=== PATIENT | female | born 1930 | race American Indian/Alaskan Native ===

== ENCOUNTER 2017-07-18 10:42 | Inpatient (IN) | payer MEDICARE, OTHER ==
[2017-07-18 10:52] VITALS: BMI 28.4
--- NOTE | 2017-07-18 11:24 | C.PDOC ---
History Of Present Illness LIMITED DUE TO CLINICAL CONDITION 87 Y/O FEMALE BROUGHT TO ED BY FAMILY FOR WORSENING WEAKNESS, FALLS, AND INCREASED CONFUSION X 2-3 DAYS. PER FAMILY, PATIENT LIVES ALONE AT HOME, NORMALLY USES CANE AND WALKER. FAMILY STATES THAT SHE APPEARS TO MORE CONFUSED LATELY - INITIALLY ATTRIBUTED TO REACTION TO RECENT IN THE FAMILY, HOWEVER FAMILY MEMBERS REPORT THEY FOUND PT LYING ON THE FLOOR FOR UNKNOWN DURATION YESTERDAY MORNING. ALSO WITH RECURRENT FALL YESTERDAY AFTERNOON; AGAIN PT WAS FOUND ON THE GROUND 2-3 HOURS AFTER FALL. PT WITH HISTORY OF INTERMITTENT LEG SWELLING; NOTED TO HAVE INCREASED SWELLING TODAY, WITH BLISTER TO LEFT LOWER LEG 4 DAYS AGO. NOW RESOLVED. DENIES FEVER. EXAM AAO X 2. LUNGS CLEAR, NO RALES. SKIN: DEHISCED BLISTER LEFT LOWER LEG, NO CELLULITIS OR DISCHARGE. EXTREMITY: 3+ EDEMA BILATERAL LOWER EXTREMITIES NEURO NO FOCAL DEFICITS mdm +SEVERE PERIPH EDEMA. DEFER SEPSIS IVF BOLUS DUE TO CONCERN FOR CHF HX. PENDING BNP Time Seen by Provider: 07/18/17 11:05 Chief Complaint (Nursing): Trauma History Per: Family History/Exam Limitations: Clinical Condition Onset/Duration Of Symptoms: Days Current Symptoms Are (Timing): Still Present Usual Baseline: Alert Confused Use Of Anticoag/Antiplatelets: No Recent travel outside of the [place]: No Associated Symptoms: Confused, Falling. denies: Fever, Chills, Vomiting, Diarrhea, Dyspnea Past Medical History Reviewed: Historical Data, Nursing Documentation, Vital Signs Vital Signs: Last Vital Signs Temp 99.9 F H 07/18/17 11:45 Pulse 121 H 07/18/17 13:14 Resp 17 07/18/17 13:14 BP 157/81 H 07/18/17 13:14 Pulse Ox 100 07/18/17 13:14 - Medical History PMH: HTN, Hypercholesterolemia - [facility] PERCUTAN NEEDLE BIOPSY OF BREAST (12/17/03) Family History: States: Unknown Family Hx - Social History Hx Alcohol Use: No Hx Substance Use: No - Immunization History Hx Tetanus Toxoid Vaccination: No Hx Influenza Vaccination: No Hx Pneumococcal Vaccination: No Review Of Systems Except As Marked, All Systems Reviewed And Found Negative. Constitutional: Positive for: Weakness. Negative for: Fever, Chills Cardiovascular: Negative for: Chest Pain, Palpitations Respiratory: Negative for: Cough, Shortness of Breath, Wheezing Gastrointestinal: Negative for: Vomiting, Diarrhea Skin: Negative for: Rash Neurological: Positive for: Confusion. Negative for: Headache, Dizziness Physical Exam - Physical Exam Appears: Well, Non-toxic, No Acute Distress, Other (AAO X 2) Skin: Warm, Dry, Other (DEHISCED BLISTER LEFT LOWER LEG, NO CELLULITIS OR DISCHARGE. ) Head: Atraumatic, Normacephalic Eye(s): bilateral: Normal Inspection, PERRL, EOMI Nose: Normal Oral Mucosa: Moist Chest: Symmetrical Cardiovascular: Rhythm Regular Respiratory: Normal Breath Sounds, No Rales, No Rhonchi, No Wheezing Gastrointestinal/Abdominal: Soft, No Tenderness, No Guarding Back: Normal Inspection Extremity: Normal ROM, Capillary Refill (< 2 SEC.), Swelling (3+ EDEMA BILATERAL LOWER EXTREMITIES) Neurological/Psych: Other (NO FOCAL DEFICITS) ED Course And Treatment - Laboratory Results Result Diagrams: 07/18/17 11:50 07/18/17 11:50 O2 Sat by Pulse Oximetry: 99 (RA) Pulse Ox Interpretation: Normal - Radiology CXR: Interpreted by Or CXR Interpretation: Yes: No Acute Disease - CT Scan/US CT Head Other Rad Studies (CT/US): Read By Radiologist, Radiology Report Reviewed CT/US Interpretation: IMPRESSION: No evidence of acute intracranial hemorrhage or large acute infarct. Moderate diffuse/confluent chronic white matter ischemic changes seen extending peripherally into deep and subcortical white matter both cerebral hemispheres. There is also extension of these ischemic changes into the white matter tracts both basal nuclei right greater than left. . There also appears be some more discrete encephalomalacia left frontal subcortical white matter subjacent to left frontoparietal craniotomy defect. Moderate volume loss. Moderate central volume loss. As mentioned above comment the left frontoparietal craniotomy defect as above. . Question fibrous dysplasia left skullbase as described with postoperative changes including partial resection of the left orbital roof. Hyperostosis frontalis interna Progress - Re-Evaluation Re-evaluation Note: 07/18/17 11:38 CT HEAD, EKG, BLOODWORK ORDERED. 07/18/17 13:07 EXAM UNCH VSS NAD. PENDING CALLBACK PMD 07/18/17 13:10 D/W DR Rajiv MEJIA WILL ADMIT - Data Reviewed Data Reviewed: Lab, Diagnostic imaging, EKG, Old records - Critical Care Citical Care: Excluding Proc Time Critical Care Time: 90 minutes - Continuity of Care Discussed patient case with:: Patient, Family-HIPPA compliant Medical Decision Making Medical Decision Making: +SEVERE PERIPH EDEMA. DEFER SEPSIS IVF BOLUS DUE TO CONCERN FOR CHF HX. PENDING BNP Disposition Counseled Patient/Family Regarding: Studies Performed, Diagnosis - Disposition Disposition: HOSPITALIZED Disposition Time: 13:10 Condition: STABLE Forms: [facility] (Swedish) - POA Present On Arrival: Falls Or Trauma, Poor Glycemic Control - Clinical Impression Clinical Impression: Recurrent falls, CHF exacerbation, Confusion - Scribe Statement The provider has reviewed the documentation as recorded by the Scribe SM All medical record entries made by the Scribe were at my direction and personally dictated by me. I have reviewed the chart and agree that the record accurately reflects my personal performance of the history, physical exam, medical decision making, and the department course for this patient. I have also personally directed, reviewed, and agree with the discharge instructions and disposition. Decision To Admit - Pt Status Changed To: Hospital Disposition Of: Inpatient - Admit Certification Admit to Inpatient:: After my assessment, the patient will require hospitalization for at least two midnights. This is because of the severity of symptoms shown, intensity of services needed, and/or the medical risk in this patient being treated as an outpatient. - InPatient: Physician Admission Certification:: SEE NOTE - . Bed Request Type: Telemetry Admitting Physician: Dudley Mejia Patient Diagnosis: Recurrent falls, CHF exacerbation, Confusion
[2017-07-18 11:44] LABS: VENOUS BLOOD GAS PCO2 44 mmHg (40-60)
--- NOTE | 2017-07-18 11:48 | RAD ---
HISTORY: Sepsis Patient COMPARISON: None available. TECHNIQUE: Chest, one view. FINDINGS: LUNGS: No focal consolidation. Please note that chest x-ray has limited sensitivity for the detection of pulmonary masses. PLEURA: No significant pleural effusion identified. No definite pneumothorax . CARDIOVASCULAR: Cardiomegaly. Ectatic aorta. OSSEOUS STRUCTURES: Degenerative changes of the spine and shoulders. VISUALIZED UPPER ABDOMEN: Unremarkable. OTHER FINDINGS: Left axillary clips. IMPRESSION: No focal consolidation, significant pleural effusion, or definite pneumothorax identified.
[2017-07-18 11:54] LABS: BASO % 0.8 % (0.0-2.0); EOS # 0.1 K/uL (0.0-0.7); EOS % 1.4 % (0.0-4.0); HEMATOCRIT 28.5 % (34.0-47.0); LYMPH % 19.9 % (20.0-40.0); MEAN CELL VOLUME 92.3 fL (81.0-99.0); MEAN CORPUSCULAR HEMOGLOBIN 30.2 pg (27.0-31.0); MEAN CORPUSCULAR HGB CONC 32.8 g/dL (33.0-37.0); MEAN PLATELET VOLUME 8.3 fL (7.2-11.7); MONO # 0.4 K/uL (0.0-0.8); MONO % 8.1 % (0.0-10.0); RED CELL DISTRIBUTION WIDTH 16.1 % (11.5-14.5); WHITE BLOOD COUNT 5.1 K/uL (4.8-10.8)
[2017-07-18 12:05] LABS: BILIRUBIN,TOTAL 0.9 mg/dL (0.2-1.3); CALCIUM 8.9 mg/dl (8.6-10.4); MAGNESIUM 2.1 mg/dL (1.6-2.3); PHOSPHOROUS 3.4 mg/dL (2.5-4.5); POTASSIUM 3.5 mmol/L (3.6-5.2); TOTAL PROTEIN 6.8 g/dL (6.3-8.3)
[2017-07-18 12:11] LABS: INR 1.1
[2017-07-18 12:17] LABS: TROPONIN I 0.093 ng/mL (0.00-0.120)
[2017-07-18 12:17] LABS: RBC URINE < 1 /hpf (0-3); URINE BACTERIA RARE (<OCC); URINE BILIRUBIN NEGATIVE (NEGATIVE); URINE BLOOD NEGATIVE (NEGATIVE); URINE COLOR Yellow (YELLOW); URINE GLUCOSE (UA) NORMAL (Normal); URINE KETONE NEGATIVE (NEGATIVE); URINE LEUKOCYTE ESTERASE NEG Leu/uL (Negative); URINE PROTEIN 1+ mg/dL (NEGATIVE); URINE UROBILINOGEN NORMAL mg/dL (0.2-1.0); WBC URINE 1 /hpf (0-5)
--- NOTE | 2017-07-18 12:48 | CT ---
PROCEDURE: CT HEAD WITHOUT CONTRAST. HISTORY: ams COMPARISON: No prior study available for comparison TECHNIQUE: Axial computed tomography images were obtained through the head/brain without intravenous contrast. Radiation dose: Total exam DLP = 954.76 mGy-cm. This CT exam was performed using one or more of the following dose reduction techniques: Automated exposure control, adjustment of the mA and/or kV according to patient size, and/or use of iterative reconstruction technique. FINDINGS: HEMORRHAGE: No acute parenchymal, subarachnoid or extra-axial hemorrhage. BRAIN: Moderate diffuse/confluent chronic white matter ischemic changes seen extending peripherally into deep and subcortical white matter both cerebral hemispheres. There is also extension of these ischemic changes into the white matter tracts both basal nuclei right greater than left. . There also appears be some more discrete encephalomalacia left frontal subcortical white matter subjacent to left frontal parietal craniotomy defect. Moderate central volume loss VENTRICLES: No evidence of obstructive hydrocephalus. . Cavum cavum vergae and/or cavum velum interpositum. CALVARIUM: No evidence of acute calvarial fracture not withstanding the aforementioned left frontal craniotomy defect. There is also hyperostosis frontalis interna. Mottled somewhat sclerotic appearance of the left sphenoid - temporal bones along the anterior floor left middle cranial fossa an along the posterolateral wall of the left orbit. There also appears to have been partial resection left orbital roof. Findings could represent fibrous dysplasia however clinical correlation with history/surgical history recommended. PARANASAL SINUSES: Unremarkable as visualized. No significant inflammatory changes. MASTOID AIR CELLS: Unremarkable as visualized. No inflammatory changes. OTHER FINDINGS: Changes of left cataract surgery. IMPRESSION: No evidence of acute intracranial hemorrhage or large acute infarct. Moderate diffuse/confluent chronic white matter ischemic changes seen extending peripherally into deep and subcortical white matter both cerebral hemispheres. There is also extension of these ischemic changes into the white matter tracts both basal nuclei right greater than left. . There also appears be some more discrete encephalomalacia left frontal subcortical white matter subjacent to left frontoparietal craniotomy defect. Moderate volume loss. Moderate central volume loss. As mentioned above comment the left frontoparietal craniotomy defect as above. . Question fibrous dysplasia left skullbase as described with postoperative changes including partial resection of the left orbital roof. Hyperostosis frontalis interna
[2017-07-18] MEDS ORDERED: Pneumococcal 23-Valent Vaccine IM ONE (16:03)
--- NOTE | 2017-07-19 01:31 | HP ---
HISTORY OF PRESENT ILLNESS: This is an 87-year-old female who was brought in with history of generalized weakness, frequent fall, found unresponsive on the floor, and subsequently brought to the emergency room. She has been having confusion at times. No sudden in the family. She has a longstanding history of hypertension and probable mitral regurgitation to my recollection. She is at home. She is maintained on Lasix 20 mg one a day, amlodipine 10 mg one a day, Coreg 12.5 mg twice a day, Lipitor 40 mg, and valsartan 160 mg. PERSONAL HISTORY: Does not smoke and does not drink. ALLERGIES: DENIED. PAST MEDICAL HISTORY: Essentially unremarkable except history of hypertension for the last many years and had some surgery done in the chest. The details of this is unclear at this time. REVIEW OF SYSTEMS: CONSTITUTIONAL: Generalized weakness. No fever, no chills, no cough, no hemoptysis, occasional wheezing, and she has history of bronchitis and asthma, being treated with Singulair in the past. No chest discomfort. Dyspnea on walking a little distance like going from bed to bathroom and she walks around with the walker. GASTROINTESTINAL: Decreased appetite. GENITOURINARY: No dysuria. No hematuria. Frequency is noted. MUSCULOSKELETAL: Multiple joint pains including both the hands, hip joints, and knee joints. PERIPHERAL VASCULAR SYSTEM: Negative for claudication, although she does not ambulate much around. NEUROLOGICAL: Negative for numbness or tingling. Frequent dizzy spell and some memory loss. No seizure. PSYCHIATRIC: No history of depression. PAST MEDICAL HISTORY: As mentioned above, nothing major. She had a percutaneous biopsy of the left breast in the past. PHYSICAL EXAMINATION: GENERAL: Shows elderly female who is conscious, alert, well-oriented, and in no acute distress. She is 5 feet 5 inches and weighs 171 pounds. VITAL SIGNS: Her blood pressure is 157/81, heart rate of 120, respiratory rate of 20, afebrile, and pulse oxygenation is 100% on 2 L. HEENT: Head is normocephalic. Eyes; no pallor and no icterus. Mouth; complete absence of teeth. NECK: Diffuse enlargement of the thyroid gland. RESPIRATORY: Decreased air entry at the bases. HEART: PMI is not localized. S1 and S2 is distant. No definite gallops. There is systolic ejection murmur grade 2-3/6 in aortic area. ABDOMEN: Soft and nontender. EXTREMITIES: Shows 2+ pitting edema from knee down. Arthritic changes in the both the knees and hands. NEUROLOGICAL: The patient is awake, alert, and oriented x3. LABORATORY DATA: CBC shows hemoglobin of 9.3. BUN is 35 and creatinine is 1.5. ProBNP is elevated to 4200. Chest x-ray showed no congestion. ASSESSMENT: This 87-year-old female with history of what appears to be mild congestive heart failure. Physical exam shows [id number] aortic stenosis. PLAN: At this point to careful diuresis. Continue to control of her blood pressure. We will review the echocardiogram done in the office, if not, we will repeat one here. DVT prophylaxis. Care of plan was explained to the patient's daughter. Dudley Mejia MD
[2017-07-19] MEDS ORDERED: Potassium Chloride 10 mEq ER Tab PO SCH (08:00)
[2017-07-19 08:10] LABS: POTASSIUM 3.5 mmol/L (3.6-5.2)
[2017-07-19 08:48] LABS: THYROID STIMULATING HORMONE 3.88 mIU/L (0.46-4.68)
[2017-07-19] MEDS: Potassium Chloride 20 mEq ER Tab PO SCH (11:55)
--- NOTE | 2017-07-19 12:38 | CP.PCM.PN ---
Subjective - Date & Time of Evaluation Date of Evaluation: 07/19/17 Time of Evaluation: 12:36 - Subjective Subjective: better.less sob Objective - Vital Signs/Intake and Output Vital Signs (last 24 hours): Temp Pulse Resp BP Pulse Ox 98 F 74 20 167/68 H 98 07/19/17 11:54 07/19/17 11:54 07/19/17 11:54 07/19/17 11:55 07/19/17 11:54 Intake and Output: 07/19/17 07/19/17 06:59 18:59 Intake Total 240 Output Total 1250 Balance -1010 - Medications Medications: Current Medications Amlodipine Besylate (Norvasc) 10 mg PO DAILY [facility] Last Admin: 07/19/17 11:55 Dose: 10 mg Bacitracin (Bacitracin) 0 gm TOP DAILY [facility] Stop: 07/26/17 10:01 Carvedilol (Coreg) 12.5 mg PO BID [facility] Last Admin: 07/19/17 11:55 Dose: 12.5 mg Furosemide (Lasix) 40 mg IVP DAILY [facility] Stop: 07/22/17 23:59 Last Admin: 07/19/17 11:55 Dose: 40 mg Heparin Sodium (Porcine) (Heparin) 5,000 units SC Q12H [facility] Last Admin: 07/19/17 11:55 Dose: 5,000 units Losartan Potassium (Cozaar) 100 mg PO DAILY [facility] Last Admin: 07/19/17 11:55 Dose: 100 mg Potassium Chloride (K-Dur 20 Meq Er Tab) 40 meq PO DAILY [facility] Last Admin: 07/19/17 11:55 Dose: 40 meq Rosuvastatin Calcium (Crestor) 5 mg PO HS [facility] - Labs Labs: 07/19/17 07:32 PT 12.8 SECONDS (9.7-12.2) H 07/18/17 11:50 INR 1.1 07/18/17 11:50 APTT 30 SECONDS (21-34) 07/18/17 11:50 - Constitutional Appears: No Acute Distress - Eye Exam Eye Exam: Normal appearance - Neck Exam Neck Exam: Normal Inspection - Respiratory Exam Respiratory Exam: Decreased Breath Sounds - Cardiovascular Exam Cardiovascular Exam: REGULAR RHYTHM, Murmur - GI/Abdominal Exam GI & Abdominal Exam: Soft - Extremities Exam Extremities Exam: Pedal Edema - Neurological Exam Neurological Exam: Alert, Oriented x3 Assessment and Plan - Assessment and Plan (Free Text) Assessment: chf,diastolic.better. echo reviewed by me. normal lv systolic func iton.dilated la,lra. mild mr,tr,pulmonaryn htn needs rehab.
[2017-07-19] MEDS: Bacitracin Ointment 30 GM TUBE TOP SCH (14:10)
[2017-07-19] MEDS ORDERED: Rosuvastatin Calcium 2.5 mg Tab PO SCH (22:00)
[2017-07-20 08:29] LABS: CALCIUM 8.2 mg/dl (8.6-10.4); POTASSIUM 3.4 mmol/L (3.6-5.2)
[2017-07-20] MEDS: Potassium Chloride 20 mEq ER Tab PO SCH (10:13)
[2017-07-20] MEDS: Bacitracin Ointment 30 GM TUBE TOP SCH (12:47)
--- NOTE | 2017-07-20 13:00 | CP.PCM.PN ---
Subjective - Date & Time of Evaluation Date of Evaluation: 07/20/17 Time of Evaluation: 12:59 - Subjective Subjective: refuses too get oob.uti. Objective - Vital Signs/Intake and Output Vital Signs (last 24 hours): Temp Pulse Resp BP Pulse Ox 98.1 F 70 20 164/69 H 100 07/20/17 08:00 07/20/17 08:00 07/20/17 08:00 07/20/17 12:45 07/20/17 08:00 Intake and Output: 07/20/17 07/20/17 06:59 18:59 Output Total 1550 Balance -1550 - Medications Medications: Current Medications Amlodipine Besylate (Norvasc) 10 mg PO DAILY [facility] Last Admin: 07/20/17 10:13 Dose: 10 mg Bacitracin (Bacitracin) 0 gm TOP DAILY [facility] Stop: 07/26/17 10:01 Last Admin: 07/20/17 12:47 Dose: 1 appl Carvedilol (Coreg) 12.5 mg PO BID [facility] Last Admin: 07/20/17 10:13 Dose: 12.5 mg Ciprofloxacin (Cipro) 500 mg PO BID [facility] Furosemide (Lasix) 40 mg IVP DAILY [facility] Stop: 07/22/17 23:59 Last Admin: 07/20/17 12:45 Dose: 40 mg Heparin Sodium (Porcine) (Heparin) 5,000 units SC Q12H [facility] Last Admin: 07/20/17 10:13 Dose: 5,000 units Losartan Potassium (Cozaar) 100 mg PO DAILY [facility] Last Admin: 07/20/17 10:13 Dose: 100 mg Potassium Chloride (K-Dur 20 Meq Er Tab) 40 meq PO DAILY [facility] Last Admin: 07/20/17 10:13 Dose: 40 meq Potassium Chloride (K-Dur 20 Meq Er Tab) 40 meq PO DAILY [facility] Stop: 07/20/17 17:01 Rosuvastatin Calcium (Crestor) 5 mg PO HS [facility] Last Admin: 07/19/17 22:00 Dose: 5 mg - Labs Labs: 07/20/17 08:09 PT 12.8 SECONDS (9.7-12.2) H 07/18/17 11:50 INR 1.1 07/18/17 11:50 APTT 30 SECONDS (21-34) 07/18/17 11:50 - Constitutional Appears: No Acute Distress, Chronically Ill - Head Exam Head Exam: NORMOCEPHALIC - Eye Exam Eye Exam: Normal appearance - Respiratory Exam Respiratory Exam: Clear to Ausculation Bilateral - Cardiovascular Exam Cardiovascular Exam: REGULAR RHYTHM - GI/Abdominal Exam GI & Abdominal Exam: Soft - Extremities Exam Extremities Exam: absent: Pedal Edema - Neurological Exam Neurological Exam: Alert, Oriented x3 Assessment and Plan - Assessment and Plan (Free Text) Assessment: now on cipro. phy therapy. k replaced. needs rehab.
[2017-07-20] MEDS ORDERED: Potassium Chloride 20 mEq ER Tab PO ONE (17:00)
--- NOTE | 2017-07-20 18:28 | CARD ---
APPROVED REPORT EKG Measurement Heart [id number] <Conclusion> Sinus rhythm with marked sinus arrhythmia Possible Left atrial enlargement Low voltage QRS Borderline ECG
[2017-07-21 07:34] VITALS: RESP 20
[2017-07-21 08:06] LABS: BASO % 0.8 % (0.0-2.0); EOS # 0.1 K/uL (0.0-0.7); EOS % 2.8 % (0.0-4.0); HEMATOCRIT 30.3 % (34.0-47.0); LYMPH # 1.1 K/uL (1.0-4.3); LYMPH % 24.4 % (20.0-40.0); MEAN CELL VOLUME 92.1 fL (81.0-99.0); MEAN CORPUSCULAR HEMOGLOBIN 30.7 pg (27.0-31.0); MEAN CORPUSCULAR HGB CONC 33.3 g/dL (33.0-37.0); MONO # 0.5 K/uL (0.0-0.8); NRBC % 0.1 % (0.0-2.0); WHITE BLOOD COUNT 4.4 K/uL (4.8-10.8)
[2017-07-21 08:13] LABS: POTASSIUM 3.8 mmol/L (3.6-5.2)
[2017-07-21 08:15] LABS: BILIRUBIN,TOTAL 0.8 mg/dL (0.2-1.3); CALCIUM 8.4 mg/dl (8.6-10.4)
[2017-07-21] MEDS: Potassium Chloride 20 mEq ER Tab PO SCH (10:03)
[2017-07-21] MEDS: Bacitracin Ointment 30 GM TUBE TOP SCH (10:03)
[2017-07-21 16:22] VITALS: PULSE 71; TEMP 98.4; O2SAT 96
--- NOTE | 2017-07-21 16:33 | CP.PCM.PN ---
Subjective - Date & Time of Evaluation Date of Evaluation: 07/21/17 Time of Evaluation: 16:31 - Subjective Subjective: PT SEEN AND EXAMINED TODAY BY DR BROWN, PT DENIES ANY PAIN, SOB, PALPITATION, RESP EASY AND UNLABORED. NAD Objective - Vital Signs/Intake and Output Vital Signs (last 24 hours): Temp Pulse Resp BP Pulse Ox 98.4 F 71 20 142/55 L 96 07/21/17 16:00 07/21/17 16:00 07/21/17 16:00 07/21/17 16:00 07/21/17 16:00 Intake and Output: 07/21/17 07/21/17 06:59 18:59 Intake Total 480 Output Total 2600 500 Balance -2600 -20 - Medications Medications: Current Medications Amlodipine Besylate (Norvasc) 10 mg PO DAILY [facility] Last Admin: 07/21/17 10:02 Dose: 10 mg Bacitracin (Bacitracin) 0 gm TOP DAILY [facility] Stop: 07/26/17 10:01 Last Admin: 07/21/17 10:03 Dose: 1 appl Carvedilol (Coreg) 12.5 mg PO BID [facility] Last Admin: 07/21/17 10:03 Dose: 12.5 mg Ciprofloxacin (Cipro) 500 mg PO BID [facility] Last Admin: 07/21/17 10:03 Dose: 500 mg Furosemide (Lasix) 40 mg IVP DAILY [facility] Stop: 07/22/17 23:59 Last Admin: 07/21/17 10:03 Dose: 40 mg Heparin Sodium (Porcine) (Heparin) 5,000 units SC Q12H [facility] Last Admin: 07/21/17 10:24 Dose: 5,000 units Losartan Potassium (Cozaar) 100 mg PO DAILY [facility] Last Admin: 07/21/17 10:03 Dose: 100 mg Potassium Chloride (K-Dur 20 Meq Er Tab) 40 meq PO DAILY [facility] Last Admin: 07/21/17 10:03 Dose: 40 meq Rosuvastatin Calcium (Crestor) 5 mg PO HS [facility] Last Admin: 07/20/17 22:58 Dose: 5 mg - Labs Labs: 07/21/17 07:52 07/21/17 07:52 PT 12.8 SECONDS (9.7-12.2) H 07/18/17 11:50 INR 1.1 07/18/17 11:50 APTT 30 SECONDS (21-34) 07/18/17 11:50 Assessment and Plan - Assessment and Plan (Free Text) Plan: 87 Y/O FEMALE WITH PMHX HTN ADMITTED FOR FREQUENT FALLS, CHF, DIASTOLIC, UTI ECHO- NORMAL LVF, MILD PUL HTN PT CLEAR FOR D/C BY DR BROWN UA AND C/S RESULT REVIEWED-BACTRIM DS FOR UTI FOR 7 DAYS WOUND CARE, FALL PRECAUTIONS MED REC PER DR BROWN
--- NOTE | 2017-07-21 16:49 | PCM.HF ---
Heart Failure Core Measure - Heart Failure Ejection Fraction: 40 % or Greater MICHAEL Inhibitor Prescribed: No Contraindication/Reason for not providing: ON ARB Beta-Nathan Prescribed: Carvedilol Angiotensin II Receptor Nathan Prescribed: Yes AnticoagulationTherapy for Atrial Fibrillation/Atrialflutter: No Contraindication/Reason for not providing: NO AFIB Aldosterone Antagonist Prescribed: No Contraindication/Reason for not providing: EF >40 Hydralazine Nitrate Prescribed: No Contraindication/Reason for not providing: EF >40 Implantable Cardioverter Defibrillator Therapy: No Contraindication/Reason for not providing: EF >40 Cardiac Resynchronization Therapy Prescribed: No Contraindication/Reason for not providing: EF >40 - Follow up Will be discharged to: Assisted Facility Follow Up Date (must be within 7 days from discharge): 07/25/17 Follow Up Time: 09:00
--- NOTE | 2017-07-21 17:18 | DS ---
HISTORY OF PRESENT ILLNESS: This is an 87-year-old female who was brought in with history of shortness of breath, found confused, had frequent falls. The patient was found to be in mild CHF. This was diastolic heart failure, which had got worse. Blood pressure was high. During hospitalization, she was monitored on the telemetry, which showed a sinus rhythm. Her lab work done today are unremarkable. Her creatinine is 1.1, hemoglobin is 10.1. She had a UTI, which is been treated with a Cipro for E. coli. BUN is 22, electrolytes are normal. Potassium is 3.8. Her vital signs remained stable. Echocardiogram had showed normal LV systolic function and mild LV diastolic dysfunction. Elevated left atrial pressure. Mild MR was noted. At this point, she also has a wound on the left leg, which is being treated and followed up by wound care. MEDICATIONS: At the time discharge, she is getting bacitracin ointment to the leg. She has been on Cipro 500 mg twice a day for another seven days, Coreg 12.5 mg two times a day. She is on Cozaar 100 mg daily, Crestor 5 mg, K-Dur 40 mEq by mouth once a day, Lasix 40 mg by mouth daily, Norvasc 10 mg by mouth once a day, and baby aspirin one a day. FINAL DIAGNOSES: Chronic diastolic left ventricular heart failure. Hypertension. Urinary tract infection. Mitral regurgitation. She will be transferred to rehab facility. Care of plan was explained to the patient's daughter on few occasions during hospitalization. I thank you kindly. Dudley Mejia MD
[2017-07-21 18:26] VITALS: BP 141/63
--- NOTE | 2017-07-23 11:10 | CARD ---
APPROVED REPORT EXAM: Two-dimensional and M-mode echocardiogram with Doppler and color Doppler. Other Information Quality : GoodRhythm : NSR INDICATION Peripheral Edema Congenital Heart Disease M-Mode DIMENSIONS RVDd1.50 (2.1-3.2cm)Left Atrium (MM)4.00 (2.5-4.0cm) IVSd0.98 (0.7-1.1cm)Aortic Root3.03 (2.2-3.7cm) LVDd5.60 (4.0-5.6cm)Aortic Cusp Exc.2.21 (1.5-2.0cm) PWd1.27 (0.7-1.1cm)FS (%) 53 % LVDs2.64 (2.0-3.8cm)LVEF (%)65 (>50%) Aortic Valve AoV Peak Uhxcgmwr915.5cm/Marisabel Peak GR.12mmHgAI P 1/2 Flqv294an Mitral Valve MV E Qievcpmw77.7cm/sMV A Yepmmzoj755.3cm/sE/A ratio0.7 TDI E/Lateral E'0.0E/Medial E'0.0 Tricuspid Valve TR Peak Rilppgtj654cw/sTR Peak Gr.[id number] <Conclusion> Left ventricle: thickness: upper limit of normal; size: normal; overall ejection fraction: 65%: diastolic filling pressures:elevated Mitral valve: annulus: normal: leaflets: normal: excursion: normal; no significant trans-mitral gradient:moderate incompetence: left atrium: normal Aortic valve: leaflets: mild thickening excursion: normal; no significant trans-aortic gradient:mild incompetence: aortic root: normal Right sided Structures: Pulmonary valve: normal; no significant incompetence; Tricuspid valve: normal; mild incompetence: Intra-cardiac hemodynamics: pulmonary systolic pressures: 50mmhg; central venous pressures: normal No pericardial effusion
== END 2017-07-21 20:58 | DRG 292 ==
LOC: C.ER 10:42 → C.9E 13:11 → C.5T 14:24 → C.5S 07-19 09:10
PROVIDERS: ADMIT Internal Medicine Cardiovascular Disease; ATTEND Internal Medicine Cardiovascular Disease
DX: I11.0 Hypertensive heart disease with heart failure (principal); I50.32 Chronic diastolic (congestive) heart failure; N39.0 Urinary tract infection, site not specified; I08.0 Rheumatic disorders of both mitral and aortic valves; R41.0 Disorientation, unspecified; B96.20 Unspecified Escherichia coli [E. coli] as the cause of diseases classified elsewhere; E78.00 Pure hypercholesterolemia, unspecified; S80.822A Blister (nonthermal), left lower leg, initial encounter; W19.XXXA Unspecified fall, initial encounter; R29.6 Repeated falls; Y92.009 Unspecified place in unspecified non-institutional (private) residence as the place of occurrence of the external cause; Z91.81 History of falling; Z79.899 Other long term (current) drug therapy